=== PATIENT | female | born 1990 | race Caucasian/White ===

== ENCOUNTER 2016-10-23 19:32 | Emergency (ER) | payer MEDICAID ==
[~2016-10-23] VITALS: Ht 170.2 cm; Wt 116.7 kg
[2016-10-23 19:40] VITALS: BP 129/84; PULSE 114; RESP 22; TEMP 97.7; O2SAT 100
[2016-10-23] MEDS ORDERED: KETOROLAC TROMETHAMINE 30 MG/ML (IVP) VIAL IV PUSH ONE (20:00)
[2016-10-23] MEDS ORDERED: ONDANSETRON HCL 4 MG/2 ML VIAL IV PUSH ONE (20:00)
[2016-10-23] MEDS ORDERED: SODIUM CHLOR 0.9% 1000 ML INJ 1,000 ML IV ONE (20:00)
[2016-10-23] MEDS ORDERED: PANT40TA3 PO (20:03)
[2016-10-23] MEDS ORDERED: QUASTAB PO (20:03)
[2016-10-23] MEDS ORDERED: LISI10TA PO (20:03)
[2016-10-23] MEDS ORDERED: CETI10TA71 PO (20:03)
[2016-10-23] MEDS ORDERED: CELE20TA PO (20:03)
[2016-10-23 20:40] VITALS: BP 135/70; PULSE 94; RESP 18; TEMP 98.2; O2SAT 100
[2016-10-23 20:54] LABS: BLOOD, URINE NEG (NEG); GLUCOSE,URINE NEG (NEG); KETONE, URINE NEG (NEG); NITRITE,URINE NEG (NEG)
[2016-10-23 20:54] LABS: AUTOMATED NEUTROPHIL # 17.1 TH/MM3 (1.8-7.7); BASOPHIL # 0.2 TH/MM3 (0-0.2); BASOPHIL % 0.9 % (0.0-2.0); EOSINOPHIL # 0.7 TH/MM3 (0-0.4); EOSINOPHIL % 2.9 % (0.0-4.0); HEMATOCRIT 37.1 % (35.0-46.0); LYMPH % 16.5 % (9.0-44.0); LYMPHOCYTE # 3.7 TH/MM3 (1.0-4.8); MEAN CELL VOLUME 78.2 FL (80.0-100.0); MEAN CORPUSCULAR HEMOGLOBIN 27.1 PG (27.0-34.0); MEAN CORPUSCULAR HGB CONC 34.7 % (32.0-36.0); MONO % 3.7 % (0.0-8.0); PLATELET COUNT 349 TH/MM3 (150-450); RED BLOOD COUNT 4.74 MIL/MM3 (4.00-5.30); RED CELL DISTRIBUTION WIDTH 13.9 % (11.6-17.2); WHITE BLOOD COUNT 22.5 TH/MM3 (4.0-11.0)
[2016-10-23 21:03] LABS: CHLORIDE 108 MEQ/L (98-107); POTASSIUM 4.1 MEQ/L (3.5-5.1); SODIUM (NA) 141 MEQ/L (136-145)
[2016-10-23 21:08] LABS: ANION GAP 11 MEQ/L (5-15); BICARBONATE 22.3 MEQ/L (21.0-32.0); BLOOD UREA NITROGEN 11 MG/DL (7-18)
[2016-10-23 21:09] LABS: HEMO FLAGS AUTO DIFF
[2016-10-23 21:11] LABS: ALT (GPT) 18 U/L (10-53); AST (GOT) 9 U/L (15-37)
[2016-10-23 21:12] LABS: GLOMERULAR FILTRATION RATE 87 ML/MIN (>89)
[2016-10-23 21:13] LABS: TOTAL BILIRUBIN ADULT 0.3 MG/DL (0.2-1.0)
[2016-10-23 21:14] LABS: ALKALINE PHOSPHATASE 75 U/L (45-117)
[2016-10-23 21:14] LABS: URINE COLOR YELLOW (YELLW/STRAW)
[2016-10-23 21:15] LABS: BACTERIA, URINE RARE /hpf; COMMENT (UR) CULT NOT INDICATED; CULTURE IF INDICATED CULT NOT INDICATED; SQUAMOUS EPITHELIAL CELL URINE > 8 /hpf (0-5)
[2016-10-23 21:27] LABS: SCAN/DIFF AUTO DIFF CONFIRMED
[2016-10-23] MEDS ORDERED: DIFL150T PO (21:39)
[2016-10-23] MEDS ORDERED: MACR100C2 PO (21:39)
--- NOTE | 2016-10-23 21:39 | PD ---
HPI Chief Complaint: Skin Problem Time Seen by Provider: 19:57 Travel History International Travel<30 days: No Contact w/Intl Traveler<30days: No Traveled to known affect area: No History of Present Illness HPI Patient is a 26-year-old female comes in complaining of a burn all over her body. She says she fell asleep in the sun today woke up with redness everywhere. She also has been having some nausea and one episode of vomiting since she woke up. She denies any pain other than the pain from the burn on her skin. She is feeling fine prior to this occurring. She denies cough or cold or any urinary symptoms. She denies any problems with bowel movements. PFSH Past Medical History Diminished Hearing: No Tetanus Vaccination: Unknown Influenza Vaccination: No ?: Not LMP: 08/04/16 : 2 Para: 1 Miscarriage: 0 : 1 Past Surgical History Other Surgery: Yes (DEVIATED SEPTUM) Social History Alcohol Use: Yes (OCC) Tobacco Use: No Substance Use: No Allergies-Medications (Allergen,Severity, Reaction): Coded Allergies: No Known Allergies (Unverified , 10/23/16) Reported Meds & Prescriptions Reported Meds & Active Scripts Active Reported Pantoprazole (Pantoprazole Sodium) 40 Mg Tab 40 Mg PO BID All Day Allergy (Cetirizine HCl) 10 Mg Tab 10 Mg PO DAILY Celexa (Citalopram Hydrobromide) 20 Mg Tab 20 Mg PO DAILY Lisinopril-Hctz 10-12.5 Mg Tab 1 Tab PO DAILY Quasense (Levonorgestrel-Ethinyl Estradiol) 0.15-0.03 Mg Tab 1 Tab PO DAILY Review of Systems Except as stated in HPI: all other systems reviewed are Neg General / Constitutional: No: Fever, Chills HENT: No: Headaches, Lightheadedness Cardiovascular: No: Chest Pain or Discomfort Respiratory: No: Cough, Shortness of Breath Gastrointestinal: Positive: Nausea, Vomiting Genitourinary: No: Urgency, Frequency Skin: Positive Change in Pigmentation Neurologic: No: Weakness, Dizziness Physical Exam Narrative GENERAL: Awake and alert, in no acute distress. SKIN: Focused skin assessment warm/dry. Erythema over the face, extremities, trunk (sunburn). HEAD: Atraumatic. Normocephalic. EYES: Pupils equal and round. No scleral icterus. No injection or drainage. ENT: Mucous membranes pink and moist. NECK: Trachea midline. No JVD. CARDIOVASCULAR: Regular rate and rhythm. No murmur appreciated. RESPIRATORY: No accessory muscle use. Clear to auscultation. Breath sounds equal bilaterally. GASTROINTESTINAL: Abdomen soft, non-tender, nondistended. MUSCULOSKELETAL: No obvious deformities. No clubbing. No cyanosis. No edema. NEUROLOGICAL: Awake and alert. No obvious cranial nerve deficits. Motor grossly within normal limits. Normal speech. PSYCHIATRIC: Appropriate mood and affect; insight and judgment normal. Data Data Last Documented VS Vital Signs Date Time Temp Pulse Resp B/P Pulse Ox O2 Delivery O2 Flow Rate FiO2 10/23/16 20:40 98.2 94 18 135/70 100 Room Air Orders Complete Blood Count With Diff (10/23/16 19:57) Comprehensive Metabolic Panel (10/23/16 19:57) Iv Access Insert/Monitor (10/23/16 19:57) Urinalysis - C+S If Indicated (10/23/16 19:57) Ed Urine Pregnancytest Poc (10/23/16 19:57) Ketorolac Inj (Toradol Inj) (10/23/16 20:00) Ondansetron Inj (Zofran Inj) (10/23/16 20:00) Sodium Chlor 0.9% 1000 Ml Inj (Ns 1000 M (10/23/16 20:00) Labs Laboratory Tests Test 10/23/16 10/23/16 20:30 20:45 Urine Color YELLOW Urine Turbidity CLEAR Urine pH 7.0 Urine Specific [place] 1.020 Urine Protein NEG mg/dL Urine Glucose (UA) NEG mg/dL Urine Ketones NEG mg/dL Urine Occult Blood NEG Urine Nitrite NEG Urine Bilirubin NEG Urine Leukocyte Esterase TRACE Urine WBC 6-8 /hpf Urine Squamous Epithelial > 8 /hpf Cells Urine Bacteria RARE /hpf Microscopic Urinalysis Comment CULT NOT INDICATED White Blood Count 22.5 TH/MM3 Red Blood Count 4.74 MIL/MM3 Hemoglobin 12.9 GM/DL Hematocrit 37.1 % Mean Corpuscular Volume 78.2 FL Mean Corpuscular Hemoglobin 27.1 PG Mean Corpuscular Hemoglobin 34.7 % Concent Red Cell Distribution Width 13.9 % Platelet Count 349 TH/MM3 Mean Platelet Volume 7.8 FL Neutrophils (%) (Auto) 76.0 % Lymphocytes (%) (Auto) 16.5 % Monocytes (%) (Auto) 3.7 % Eosinophils (%) (Auto) 2.9 % Basophils (%) (Auto) 0.9 % Neutrophils # (Auto) 17.1 TH/MM3 Lymphocytes # (Auto) 3.7 TH/MM3 Monocytes # (Auto) 0.8 TH/MM3 Eosinophils # (Auto) 0.7 TH/MM3 Basophils # (Auto) 0.2 TH/MM3 CBC Comment AUTO DIFF Differential Comment AUTO DIFF CONFIRMED Sodium Level 141 MEQ/L Potassium Level 4.1 MEQ/L Chloride Level 108 MEQ/L Carbon Dioxide Level 22.3 MEQ/L Anion Gap 11 MEQ/L Blood Urea Nitrogen 11 MG/DL Creatinine 0.81 MG/DL Estimat Glomerular Filtration 87 ML/MIN Rate Random Glucose 125 MG/DL Calcium Level 9.2 MG/DL Total Bilirubin 0.3 MG/DL Aspartate Amino Transf 9 U/L (AST/SGOT) Alanine Aminotransferase 18 U/L (ALT/SGPT) Alkaline Phosphatase 75 U/L Total Protein 6.8 GM/DL Albumin 2.8 GM/DL [facility] Medical Decision Making Medical Screen Exam Complete: Yes Emergency Medical Condition: Yes Differential Diagnosis Gastroenteritis versus sunburn versus dehydration versus UTI versus electrolyte abnormality Narrative Course Patient is a 26-year-old female comes in complaining of a severe sunburn as well as an episode of nausea and vomiting. Exam shows sunburn over the area of her skin. There is no blistering. IV established, labs sent. Labs do show an elevated white blood cell count of 22. Patient was not having any infectious symptoms prior to sustaining a sunburn. Her urine does have bacteria and white blood cells in it. She'll be given a prescription for Macrobid. She is also requesting Diflucan to take after the antibiotics. She feels better after IV fluids, Toradol, Zofran. She is comfortable going home. She is advised to stay out of the sun. She is advised to drink plenty of fluids. Advised to take Tylenol or ibuprofen as needed for any pain. Advised to apply aloe to her skin to relieve the sunburn pain. Advised to return to the ED as needed for any worsening symptoms. Diagnosis Primary Impression: Sunburn Additional Impressions: Nausea and vomiting Qualified Code: R11.2 - Non-intractable vomiting with nausea, unspecified vomiting type UTI (urinary tract infection) Qualified Code: N30.00 - Acute cystitis without hematuria Patient Instructions: Acute Nausea and Vomiting (ED), General Instructions, Sunburn (ED), Urinary Tract Infection in Women (ED) Additional Instructions: Drink plenty of fluids. Apply aloe tear skin to relieve pain from sunburn. Take ibuprofen or Tylenol as needed for pain. Take all of your antibiotic. Return to the ED as needed for any worsening symptoms. Scripts Fluconazole (Diflucan)150 Mg [id number] Mg PO ONCE #1 TAB Ref 0 Prov:Ericka Quintanilla MD 10/23/16 Nitrofurantoin Monohydrate Macrocrystals (Macrobid)100 Mg [id number] Mg PO BID 5 Days Ref 0 Prov:Ericka Quintanilla MD 10/23/16 Disposition: 01 DISCHARGE HOME Condition: Stable Ericka Quintanilla MD Oct 23, 2016 21:39
[2016-10-23 22:20] VITALS: BP 114/52
[2016-10-23 22:43] VITALS: BP 114/52
== END 2016-10-23 22:48 | disposition home or self-care (01) ==
LOC: PHED 19:32
DX: L55.9 Sunburn, unspecified (principal); R11.2 Nausea with vomiting, unspecified; N39.0 Urinary tract infection, site not specified
CPT/HCPCS: 80053; 81001; 84703; 85025; 96361; 96374; 96375; 99284; J1885; J2405; J7030